=== PATIENT | male | born 1995 | race Caucasian/White ===

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

== ENCOUNTER 2017-12-22 02:00 | Emergency (ER) | payer OTHER, BC ==
[2017-12-22 02:24] VITALS: BP 132/85; PULSE 75; TEMP 98.1; BMI 24.3
--- NOTE | 2017-12-22 02:28 | PDOC ---
History of Present Illness - General Stated Complaint: L HAND LAC Time Seen by Provider: 12/22/17 02:18 History Source: Patient Exam Limitations: No Limitations - History of Present Illness Initial Comments: 12/22/17 02:19 Best Contact: PCP: Dr. Burgess Pmhx:0 Pshx:0 Allergies:0 FH:0 Social Hx: Cigarettes/ 0Alcohol/ 0 Drugs/0 LMP:N/A 22-year-old who is right hand dominant presents to the ER complaining of laceration to the left palm. 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 Patient denies extremity numbness or tingling sensation. Patient states incident occurred 2-1/ 2 hours ago. He applied a Band-Aid and continue working for the past 2 hours. Patient states bleeding was controlled with direct pressure prior to his arrival. Unknown last tetanus. Past History - Past Medical History Allergies/Adverse Reactions: Allergies Allergy/AdvReac Type Severity Reaction Status Date / Time No Known Drug Allergies Allergy Verified 12/22/17 02:21 environmental Allergy Uncoded 12/22/17 02:21 Home Medications: Ambulatory Orders Albuterol Sulfate Inhaler - [Ventolin HFA Inhaler -] 1 - 2 inh PO QID PRN Asthma: Yes - Immunization History Td Vaccination: Yes TDAP Vaccination: Yes Immunization Up to Date: Yes - Suicide/Smoking/Psychosocial Hx Smoking Status: No Smoking History: Never smoked Have you smoked in the past 12 months: No Number of Cigarettes Smoked Daily: 0 Hx Alcohol Use: No Drug/Substance Use Hx: No Substance Use Type: Alcohol Review of Systems - Review of Systems Able to Perform ROS?: Yes Comments:: 12/22/17 03:10 CONSTITUTIONAL: Absent: fever, chills, diaphoresis, generalized weakness, malaise, loss of appetite HEENT: Absent: rhinorrhea, nasal congestion, throat pain, throat swelling, difficulty swallowing, mouth swelling, ear pain, eye pain, visual Changes CARDIOVASCULAR: Absent: chest pain, loss of consciousness, palpitations, irregular heart rate, peripheral edema RESPIRATORY: Absent: cough, shortness of breath, dyspnea with exertion, orthopnea, wheezing, stridor, hemoptysis GASTROINTESTINAL: Absent: abdominal pain, abdominal distension, nausea, vomiting, diarrhea, constipation, melena, hematochezia GENITOURINARY: Absent: dysuria, frequency, urgency, hesitancy, hematuria, flank pain, genital pain MUSCULOSKELETAL: Absent: myalgia, arthralgia, joint swelling SKIN: Absent: rash, itching, pallor HEMATOLOGIC/IMMUNOLOGIC: Absent: easy bleeding, easy bruising, lymphadenopathy, frequent infections ENDOCRINE: Absent: unexplained weight gain, unexplained weight loss, heat intolerance, cold intolerance NEUROLOGIC: Absent: , focal weakness or paresthesias Is the patient limited [place]ic proficient: No *Physical Exam - Physical Exam Comments: 12/22/17 03:10 GENERAL: Well developed, well nourished. Awake and alert. No acute distress. MUSCULOSKELETAL Normal range of motion at all joints. No bony deformities or tenderness. No CVA tenderness. EXTREMITIES: Left hand: lac to lat prox thenar neg numbness/tingling on 2 point discrimination/paperclip F.R>O.M., against resistance on flexion and extension cap refill <2sec No cyanosis. No clubbing. No edema. No calf tenderness. SKIN: Warm and dry. Normal capillary refill. No rashes. No jaundice. NEUROLOGICAL: Alert, awake, appropriate. No deficits to light touch and temperature in face, upper extremities and lower extremities. 12/22/17 03:11 *DC/Admit/Observation/Transfer Diagnosis at time of Disposition: Laceration of left hand Qualifiers: Encounter type: initial encounter Foreign body presence: without foreign body Qualified Code(s): S61.412A - Laceration without foreign body of left hand, initial encounter - Discharge Dispostion Disposition: HOME Condition at time of disposition: Stable Decision to Admit order: No - Referrals Referrals: Jeanette Spencer MD [Primary Care Provider] - - Patient Instructions Printed Discharge Instructions: DI for Laceration Repair Additional Instructions: Keep the incision clean and dry for 24 hours. After 24 hours, you may allow the soap and water to rinse off your incision. Avoid direct pressure of the water to the incision. Pat the incision dry with a clean clothe. Apply a small amount of bacitracin onto the incision. Cover the incision loosely with a bandaid. Take tylenol/motrin as needed for pain. Follow up with your physician or the ER in 48 hours for a wound check. Return to the ER if you notice red streaks, increase redness/swelling/severe pain to the incision. Suture removal in 10-11 days. - Post Discharge Activity Forms/Work/School Notes: Back to Work
[2017-12-22] MEDS ORDERED: DIPHTH,PERTUSS(ACELL),TET 0.5 ML DISP.SYRIN IM ONE (03:08)
--- NOTE | 2017-12-22 03:26 | PDOC ---
*Physical Exam - Vital Signs Last Vital Signs Temp Pulse Resp BP Pulse Ox 98.1 F 75 18 132/85 99 12/22/17 02:21 12/22/17 02:21 12/22/17 02:21 12/22/17 02:21 12/22/17 02:21 ED Treatment Course - Medications Given in the ED: ED Medications Discontinued Medications Generic Name Dose Route Start Last Admin Trade Name Freq PRN Reason Stop Dose Admin Diphtheria/Tetanus/Acell Pertussis 0.5 ml 12/22/17 03:08 12/22/17 03:14 Boostrix - IM 12/22/17 03:09 0.5 ml .ONCE ONE Administration Medical Decision Making - Medical Decision Making 12/22/17 03:26 Case discussed with GARTH Etienne. Plan as per GARTH Etienne *DC/Admit/Observation/Transfer Diagnosis at time of Disposition: Laceration of left hand Qualifiers: Encounter type: initial encounter Foreign body presence: without foreign body Qualified Code(s): S61.412A - Laceration without foreign body of left hand, initial encounter - Discharge Dispostion Disposition: HOME Condition at time of disposition: Stable - Referrals Referrals: Jeanette Spencer MD [Primary Care Provider] - - Patient Instructions Printed Discharge Instructions: DI for Laceration Repair Additional Instructions: Keep the incision clean and dry for 24 hours. After 24 hours, you may allow the soap and water to rinse off your incision. Avoid direct pressure of the water to the incision. Pat the incision dry with a clean clothe. Apply a small amount of bacitracin onto the incision. Cover the incision loosely with a bandaid. Take tylenol/motrin as needed for pain. Follow up with your physician or the ER in 48 hours for a wound check. Return to the ER if you notice red streaks, increase redness/swelling/severe pain to the incision. Suture removal in 10-11 days. - Post Discharge Activity Forms/Work/School Notes: Back to Work
== END 2017-12-22 03:15 | disposition home or self-care (01) ==
LOC: JER 02:00
PROC: 3E0234Z Introduction of Serum, Toxoid and Vaccine into Muscle, Percutaneous Approach (ICD-10-PCS; principal; 2017-12-22)
DX: S61.412A Laceration without foreign body of left hand, initial encounter (principal); W25.XXXA Contact with sharp glass, initial encounter; Y93.89 Activity, other specified; Y92.511 Restaurant or cafe as the place of occurrence of the external cause; Y99.0 Civilian activity done for income or pay
CPT/HCPCS: 90715; 99281-25

== ENCOUNTER 2018-01-05 17:33 | Emergency (ER) | payer OTHER, BC ==
[2018-01-05 17:38] VITALS: BP 129/71; PULSE 81; TEMP 98.4; BMI 27.6
--- NOTE | 2018-01-05 18:28 | PDOC ---
Suture Removal/Wound Check HPI - History of Present Illness Chief Complaint: Suture/Staple Removal(Here) Stated Complaint: Suture/Staple Removal(Here) Time Seen by Provider: 01/05/18 17:51 History Source: Yes: Patient Exam Limitations: Yes: No Limitations Treated at: [facility] ED - Previous ED Treatment Type of procedure performed on last visit: Yes: Laceration Repair Tetanus Immunization: Yes: Up to Date Past History - Travel Traveled outside of the country in the last 30 days: No Close contact w/someone who was outside of country & ill: No - Past Medical History Allergies/Adverse Reactions: Allergies Allergy/AdvReac Type Severity Reaction Status Date / Time No Known Drug Allergies Allergy Verified 01/05/18 17:38 environmental Allergy Uncoded 01/05/18 17:38 Home Medications: Ambulatory Orders Albuterol Sulfate Inhaler - [Ventolin HFA Inhaler -] 1 - 2 inh PO QID PRN Asthma: Yes COPD: No - Immunization History Td Vaccination: Yes TDAP Vaccination: Yes Immunization Up to Date: Yes - Suicide/Smoking/Psychosocial Hx Smoking Status: No Smoking History: Never smoked Have you smoked in the past 12 months: No Number of Cigarettes Smoked Daily: 0 Hx Alcohol Use: No Drug/Substance Use Hx: No Substance Use Type: Alcohol Suture Removal/Wound Check PE - Physical Exam Laceration/Wound Check Symptoms: reports: None Current Severity Level: None Maximum Severity Level: None Pain Localization: None *Review of Systems - Review of Systems Able to Perform ROS?: Yes Constitutional: Yes: See HPI. No: Symptoms Reported HEENTM: No: Symptoms Reported Respiratory: Yes: Symptoms reported ABD/GI: Yes: Symptoms Reported Musculoskeletal: Yes: Symptoms Reported, See HPI Integumentary: Yes: Symptoms Reported Neurological: No: Symptoms reported All Other Systems: Reviewed and Negative *Physical Exam - Vital Signs Last Vital Signs Temp Pulse Resp BP Pulse Ox 98.4 F 81 18 129/71 99 01/05/18 17:36 01/05/18 17:36 01/05/18 17:36 01/05/18 17:36 01/05/18 17:36 - Physical Exam General Appearance: Yes: Nourished, Appropriately Dressed HEENT: positive: FLORENCIO, Normal ENT Inspection, TMs Normal, Pharynx Normal Neck: positive: Supple. 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 NML intact, Fully Oriented, Alert, Normal Mood/ Affect, Normal Response, Motor Strength 5/5 *DC/Admit/Observation/Transfer Diagnosis at time of Disposition: Suture Removal from skin - Discharge Dispostion Disposition: HOME Condition at time of disposition: Stable Decision to Admit order: No - Referrals Referrals: Jeanette Spencer MD [Primary Care Provider] - - Patient Instructions Printed Discharge Instructions: DI for Suture Removal Additional Instructions: Rest, avoid strenuous activity or exercise until scabbing is completely resolved May use bacitracin ointment until scabbing is gone After may use vitamin E oil, poke hole in vitamin E capsule and use oil from the capsule on wound- may help resolve some of the discoloration of the scar Keep wound out of the sun for at least one year to avoid darkening of scar tissue - Post Discharge Activity Forms/Work/School Notes: Back to Work
== END 2018-01-05 18:04 | disposition home or self-care (01) ==
LOC: JERFT 17:33
DX: Z48.817 Encounter for surgical aftercare following surgery on the skin and subcutaneous tissue (principal); Z48.02 Encounter for removal of sutures
CPT/HCPCS: 99281-25

== ENCOUNTER 2018-02-21 15:32 | Emergency (ER) | payer BC ==
[2018-02-21 16:03] VITALS: BP 115/75; PULSE 66; TEMP 98.7; BMI 26.4
--- NOTE | 2018-02-21 16:22 | PDOC ---
History of Present Illness - General Chief Complaint: Bleeding from Anus Stated Complaint: BLEEDING, RECAL Time Seen by Provider: 02/21/18 16:10 History Source: Patient Exam Limitations: No Limitations - History of Present Illness Travel History: No Initial Comments: 02/21/18 16:17 c/o rectal burning and bleeding after pushing during a bowel movement. no diarrhea no abd pain .Denies any anal intercourse, or foreign body exposure. 02/21/18 16:21 Past History - Past Medical History Allergies/Adverse Reactions: Allergies Allergy/AdvReac Type Severity Reaction Status Date / Time No Known Drug Allergies Allergy Verified 02/21/18 15:59 environmental Allergy Uncoded 02/21/18 15:59 Home Medications: Ambulatory Orders Albuterol Sulfate Inhaler - [Ventolin HFA Inhaler -] 1 - 2 inh PO QID PRN Hydrocortisone Acetate [Anusol Hc Suppository -] 25 mg RC BID #28 supp.rect Asthma: Yes COPD: No - Immunization History Td Vaccination: Yes TDAP Vaccination: Yes Immunization Up to Date: Yes - Suicide/Smoking/Psychosocial Hx Smoking Status: No Smoking History: Never smoked Have you smoked in the past 12 months: No Number of Cigarettes Smoked Daily: 5 Information on smoking cessation initiated: No Hx Alcohol Use: Yes (social) Drug/Substance Use Hx: No Substance Use Type: Alcohol Abd/GI Specific PMHX - Complaint Specific PMHX Colitis: No Diverticulitis: No Gall Bladder Disease: No GERD: No Hepatitis: No Irritable Bowel Synd (IBS): No Pancreatitis: No GI Ulcer Disease: No Review of Systems - Review of Systems Able to Perform ROS?: Yes Is the patient limited [place] proficient: No ABD/GI: Yes: Symptoms Reported *Physical Exam - Vital Signs Last Vital Signs Temp Pulse Resp BP Pulse Ox 98.7 F 66 18 115/75 98 02/21/18 16:00 02/21/18 16:00 02/21/18 16:00 02/21/18 16:00 02/21/18 16:00 - Physical Exam General Appearance: Yes: Nourished, Appropriately Dressed HEENT: positive: EOMI, FLORENCIO Gastrointestinal/Abdominal: positive: Normal Bowel Sounds, Soft. negative: Tender Rectal Exam: positive: normal rectal tone, hemorrhoids (internal hemorhoid non thrombosed) Musculoskeletal: positive: Normal Inspection Extremity: positive: Normal Capillary Refill, Normal Inspection, Normal Range of Motion Medical Decision Making - Medical Decision Making 02/21/18 16:18 cc: rectal burning and BRBPR after having large BM with pushing no bleeding now exam with no external hemorrhoids, internal palpated will treat with Annusol supository *DC/Admit/Observation/Transfer Diagnosis at time of Disposition: Hemorrhoid Qualifiers: Hemorrhoid type: first degree Qualified Code(s): K64.0 - First degree hemorrhoids - Discharge Dispostion Disposition: HOME Condition at time of disposition: Good - Prescriptions Prescriptions: Hydrocortisone Acetate [Anusol Hc Suppository -] 25 mg RC BID #28 supp.rect - Referrals Referrals: Duong Spencer MD [Primary Care Provider] - Mary Grace Mitchell MD [Staff Physician] - - Patient Instructions Additional Instructions: drink at least 2 liters of water a day high fiber diet vegetables and fruits avoid fatty foods use the suppository as directed follow with the top and seat cover fitter for follow up return if worse - Post Discharge Activity
== END 2018-02-21 16:50 | disposition home or self-care (01) ==
LOC: JERFT 15:32
DX: K64.0 First degree hemorrhoids (principal)
CPT/HCPCS: 99281-25

== ENCOUNTER 2018-11-01 00:13 | Emergency (ER) | payer BC, OTHER ==
[2018-11-01 00:24] VITALS: BP 133/88; PULSE 83; TEMP 97.7; BMI 24.3
[2018-11-01 01:32] LABS: BASO % 0.4 % (0-2.0); EOS % 2.8 % (0-4.5); HEMATOCRIT 45.4 % (35.4-49); HEMOGLOBIN 15.1 GM/dL (11.7-16.9); MCH 30.4 pg (25.7-33.7); MCHC 33.3 g/dl (32.0-35.9); MEAN CELL VOLUME 91.3 fl (80-96); MEAN PLT VOLUME 8.4 fl (7.5-11.1); MONO % 9.8 % (3.8-10.2); PLATELET COUNT 200 K/MM3 (134-434); RBC 4.97 M/mm3 (4.00-5.60); RDW 13.9 % (11.9-15.9); WHITE BLOOD COUNT 8.1 K/mm3 (4.0-10.0)
--- NOTE | 2018-11-01 02:02 | PDOC ---
History of Present Illness - General Chief Complaint: Chest Pain Stated Complaint: CHEST PAIN Time Seen by Provider: 11/01/18 00:43 History Source: Patient Exam Limitations: No Limitations - History of Present Illness Initial Comments: 11/01/18 02:42 HISTORY OF PRESENT ILLNESS: 23-year-old male with past medical history of unknown cardiac problem (mother states the child was evaluated by the licensed prosthetist/orthotist at 10 years old for questionable problem was told no follow-up was necessary) who presents emergency department for evaluation of atraumatic left shoulder pain today while at a picnic sitting down eating. Reports he felt a sharp pain in the anterior shoulder which caused him to have mild weakness of his left hand when the pain was present. Tried to turn to normal when pain subsided. Patient did not take any for the pain and had spontaneous resolution. No recent travel or sick contacts. PAST MEDICAL HISTORY: Denies past medical history SURGICAL HISTORY: Denies ALLERGIES: No known drug allergies REVIEW OF SYSTEMS General/Constitutional: Denies fever or chills. Denies weakness, weight change. HEENT: Denies change in vision. Denies ear pain or discharge. Denies sore throat. Cardiovascular: Denies chest pain or shortness of breath. Respiratory: Denies cough, wheezing, or hemoptysis. Gastrointestinal: Denies nausea, vomiting, diarrhea or constipation. Denies rectal bleeding. Genitourinary: Denies dysuria, frequency, or change in urination. Musculoskeletal: Denies joint or muscle swelling or pain. Denies neck or back pain. Skin and breasts: Denies rash or easy bruising. Neurologic: Denies headache, vertigo, loss of consciousness, or loss of sensation. Psychiatric: Denies depression or anxiety. Endocrine: Denies increased thirst. Denies abnormal weight change. Hematologic/Lymphatic: Denies anemia, easy bleeding, or history of blood clots. Allergic/Immunologic: Denies hives or skin allergy. Denies latex allergy. PHYSICAL EXAM General Appearance: Well-appearing, appropriately dressed. No apparent distress , no intoxication. Respiratory/Chest: Lungs CTAB. No shortness of breath, chest tenderness, respiratory distress, accessory muscle use. No crackles, rales, rhonchi, stridor , wheezing, dullness Cardiovascular: RRR. S1, S2. No JVD, murmur, bradycardia, tachycardia. Vascular Pulses: Dorsalis-Pedis (R): 2+, Dorsalis-Pedis (L): 2+ Gastrointestinal/Abdominal: Normal bowel sounds. Abdomen soft, non-distended. No tenderness or rebound tenderness. No organomegaly, pulsatile mass, guarding, hernia, hepatomegaly, splenomegaly. Musculoskeletal/Extremities: Normal inspection. Full active range of motion of left shoulder. Tender to palpation over the anterior capsule of the left shoulder. Increased pain with downward traction is pressed on extended shoulder. No deformity, crepitus or step-off present upon palpation of humerus, clavicle or ribs. Neurovascular intact. Integumentary: Appropriate color, dry, warm. No cyanosis, erythema, jaundice or rash Neurologic: news broadcaster II-XII intact. Fully oriented, alert. Appropriate mood/affect. Motor strength 5/5. No appreciable EOM palsy, facial droop or sensory deficit. 11/01/18 02:56 Past History - Past Medical History Allergies/Adverse Reactions: Allergies Allergy/AdvReac Type Severity Reaction Status Date / Time No Known Drug Allergies Allergy Verified 11/01/18 00:22 environmental Allergy Uncoded 11/01/18 00:22 Home Medications: Ambulatory Orders Hydrocortisone Acetate [Anusol Hc Suppository -] 25 mg RC BID #28 supp.rect Methylprednisolone [Medrol Dose Yong] 4 mg PO ASDIR #21 tablet 11/01/18 Asthma: Yes COPD: No - Immunization History Td Vaccination: Yes TDAP Vaccination: Yes Immunization Up to Date: Yes - Suicide/Smoking/Psychosocial Hx Smoking Status: No Smoking History: Never smoked Have you smoked in the past 12 months: No Number of Cigarettes Smoked Daily: 5 Information on smoking cessation initiated: No Hx Alcohol Use: No Drug/Substance Use Hx: No Substance Use Type: Alcohol *Physical Exam - Vital Signs Last Vital Signs Temp Pulse Resp BP Pulse Ox 97.7 F 83 18 133/88 99 11/01/18 00:22 11/01/18 00:22 11/01/18 00:22 11/01/18 00:22 11/01/18 00:22 Heart Score/ECG Review - History History: Slightly suspicious - Electrocardiogram EKG: Normal - Age Age: </= 45 - Risk Factors Risk Factors Heart Score: Yes Positive family hx of cardiac disease Based on the list above the patient has:: 1-2 risk factors - Troponin Troponin: </= normal limit - Score Heart Score - Total: 1 ED Treatment Course - LABORATORY CBC & Chemistry Diagram: 11/01/18 01:20 11/01/18 01:20 - ADDITIONAL ORDERS Additional order review: 11/01/18 01:20 RBC 4.97 MCV 91.3 MCHC 33.3 RDW 13.9 MPV 8.4 Neutrophils % 61.0 Lymphocytes % 26.0 Monocytes % 9.8 Eosinophils % 2.8 Basophils % 0.4 - RADIOLOGY Radiology Studies Ordered: Category Date Time Status CHEST PA & LAT [RAD] Stat Radiology 11/01/18 01:04 Taken Medical Decision Making - Medical Decision Making 11/01/18 02:41 A/P: 23-year-old male with atraumatic left anterior shoulder pain Pain is radicular in nature. As patient has previous unknown cardiac history I will do an EKG, chest x-ray and one set of cardiac enzymes to rule out cardiac etiology of pain. Laboratory testing is unremarkable with an initial troponin is less than 0.02. EKG sinus rhythm with sinus arrhythmia the rate of 61. Normal intervals present. No ischemic changes noted. Chest x-ray as read by me: Angles sharp. Lung harris clear without infiltrates or consolidation. Cardiac silhouette is within normal limits. I'll discharge the patient home with a prescription for Medrol Dosepak instructions to follow-up with his primary doctor. *DC/Admit/Observation/Transfer Diagnosis at time of Disposition: Left anterior shoulder pain - Discharge Dispostion Disposition: HOME Condition at time of disposition: Fair Decision to Admit order: No - Prescriptions Prescriptions: Methylprednisolone [Medrol Dose Yong] 4 mg PO ASDIR #21 tablet - Referrals Referrals: Jeanette Spencer MD [Primary Care Provider] - - Patient Instructions Additional Instructions: Rest your shoulder. Your emergency department visit is incomplete and spleen follow-up with your regular doctor. Take Medrol Dosepak as prescribed. Return to emergency department for any new or worsening symptoms. Thank you very much for choosing us to provide your emergent health care needs. - Post Discharge Activity
[2018-11-01 02:03] LABS: ALBUMIN 4.3 g/dl (3.4-5.0); ALK PHOS 47 U/L (45-117); ANION GAP 5 MMOL/L (8-16); BILIRUBIN,TOTAL 0.5 mg/dL (0.2-1); BLOOD UREA NITROGEN 9.3 mg/dL (7-18); CALCIUM 9.1 mg/dL (8.5-10.1); CHLORIDE 106 mmol/L (98-107); CO2 31 mmol/L (21-32); CREATININE 1.1 mg/dL (0.55-1.3); GLUCOSE,RANDOM 77 mg/dL (74-106); MAGNESIUM 2.5 mg/dL (1.8-2.4); POTASSIUM 4.6 mmol/L (3.5-5.1); SGOT/AST 22 U/L (15-37); SGPT/ALT 21 U/L (13-61); SODIUM 142 mmol/L (136-145); TOT PROT 7.3 g/dl (6.4-8.2)
[2018-11-01 02:25] LABS: INR 0.9 (0.83-1.09); PROTHROMBIN TIME (PATIENT) 10.6 SEC (9.7-13.0)
--- NOTE | 2018-11-03 00:29 | EKG ---
Test Reason : Blood Pressure : / mmHG Vent. Rate : 061 BPM Atrial Rate : 061 BPM P-R Int : 122 ms QRS Dur : 084 ms QT Int : 390 ms P-R-T Axes : 074 092 081 degrees QTc Int : 392 ms NORMAL SINUS RHYTHM WITH SINUS ARRHYTHMIA RIGHTWARD AXIS BORDERLINE ECG NO PREVIOUS ECGS AVAILABLE Confirmed by MD Jeffery, Tevin ([id number]) on 11/03/2018 12:29:21 AM Referred By: Confirmed By:Tevin Gil MD
== END 2018-11-01 02:45 | disposition home or self-care (01) ==
LOC: JER 00:13
DX: M25.512 Pain in left shoulder (principal)
CPT/HCPCS: 36415; 71046-TC-FY; 80053; 82550; 82553; 83735; 84484; 85025; 85610; 93005; 93010; 99281-25

== ENCOUNTER 2023-07-02 00:20 | Emergency (ER) | payer OTHER ==
[2023-07-02 00:27] VITALS: BP 127/89; PULSE 82; RESP 16; TEMP 98.4; BMI 25.8
[2023-07-02] MEDS ORDERED: PIPERACILLIN/TAZOBACTAM 3.375 GM VIAL IVPB ONE (00:41)
[2023-07-02] MEDS: PIPERACILLIN/TAZOB 3.375 GM 3.375 GM in DEXTROSE 5%-WATER - 50 ML IVPB ONE (00:51)
[2023-07-02] MEDS ORDERED: KETOROLAC TROMETHAMINE 30 MG/1 ML VIAL ONE (00:51)
[2023-07-02] MEDS: KETOROLAC TROMETHAMINE 30 MG/1 ML VIAL IVPUSH ONE (01:22)
== END 2023-07-02 01:30 | disposition home or self-care (01) ==
LOC: FER 00:20
PROC: 3E03329 Introduction of Other Anti-infective into Peripheral Vein, Percutaneous Approach (ICD-10-PCS; principal; 2023-07-02)
PROC: 3E0333Z Introduction of Anti-inflammatory into Peripheral Vein, Percutaneous Approach (ICD-10-PCS; 2023-07-02)
DX: S61.250A Open bite of right index finger without damage to nail, initial encounter (principal); W55.01XA Bitten by cat, initial encounter
CPT/HCPCS: 96365; 96375; 99284-25

== ENCOUNTER 2023-10-15 13:28 | Emergency (ER) | payer OTHER ==
[2023-10-15 13:40] VITALS: BP 109/73; PULSE 66; RESP 20; TEMP 98.3; BMI 25.8
[2023-10-15] MEDS: DEXAMETHASONE 4 MG TABLET (FP) PO ONE (14:20)
[2023-10-15] MEDS ORDERED: DEXAMETHASONE SOD PHOSPHATE 10 MG/1 ML VIAL ONE (14:21)
== END 2023-10-15 14:25 | disposition home or self-care (01) ==
LOC: FER 13:28
DX: J02.9 Acute pharyngitis, unspecified (principal)
CPT/HCPCS: 99283-25

== ENCOUNTER 2024-08-05 13:34 | Emergency (ER) | payer OTHER ==
[2024-08-05 13:43] VITALS: BP 142/92; PULSE 84; RESP 18; TEMP 98.4; BMI 24.3
[2024-08-05] MEDS ORDERED: ACETAMINOPHEN INJECTION 100 ML ONE (14:49)
[2024-08-05] MEDS ORDERED: ONDANSETRON 4 MG/2 ML VIAL ONE (14:50)
[2024-08-05] MEDS: ONDANSETRON 4 MG/2 ML VIAL IVPUSH ONE (14:56)
[2024-08-05] MEDS: ACETAMINOPHEN 1000 MG/100 ML BAG IVPB ONE (14:56)
[2024-08-05] MEDS: SODIUM CHLORIDE 1,000 ML IV STA (14:56)
[2024-08-05 15:10] LABS: ABSOLUTE IMMATURE GRANULOCYTES 0.07 x10^3/uL (0.0-0.031); BASOPHILS # 0.02 x10^3/uL (0.01-0.08); HEMATOCRIT 40.4 % (40.1-51.0); HEMOGLOBIN 13.4 g/dL (13.7-17.5); MCHC 33.2 g/dl (32.3-36.5); MEAN PLT VOLUME 10.2 fl (9.4-12.4); MONOCYTE # 0.99 x10^3/uL (0.30-0.82); MONOCYTE % 7.3 % (5.3-12.2); PLATELET COUNT 172 x10^3/uL (163-337); RDW 12.5 % (11.9-15.3)
[2024-08-05 15:12] LABS: EPI CELLS 2 /uL (0-25.1); HYALINE CASTS 1 /uL (0-3.1); URINE APPEARANCE CLOUDY; URINE BACTERIA 8478 /uL (0-1359); URINE BILIRUBIN NEGATIVE (NEGATIVE); URINE COLOR YELLOW; URINE GLUCOSE (UA) NEGATIVE (NEGATIVE); URINE KETONE 1+ (NEGATIVE); URINE LEUK ESTERASE 3+ (NEGATIVE); URINE NITRITE NEGATIVE (NEGATIVE); URINE PROTEIN 3+ (NEGATIVE); URINE RBC 1631 /uL (0-23.9); URINE WBC 3839 /uL (0-25.8)
[2024-08-05 15:27] LABS: POTASSIUM 4.3 mmol/L (3.5-5.1)
[2024-08-05 15:29] LABS: ALBUMIN 3.7 g/dl (3.4-5.0); CALCIUM 8.8 mg/dL (8.5-10.1)
[2024-08-05 15:30] LABS: BLOOD UREA NITROGEN 7.7 mg/dL (7-18)
[2024-08-05 15:34] LABS: TOT PROT 7.1 g/dl (6.4-8.2)
[2024-08-05 16:26] LABS: HIV INTERPRETATION NEGATIVE (NEGATIVE)
[2024-08-05 16:27] LABS: HCV DIAGNOSTIC IN-HOUSE W/RFLX NON-REACTIVE (NONREACTIVE)
[2024-08-05] MEDS ORDERED: morphine SULFATE 4 MG/ML VIAL ONE (17:54)
[2024-08-05] MEDS: morphine CARPU-JECT 4 MG/1 ML DISP.SYRIN IVPUSH ONE (18:07)
[2024-08-05] MEDS ORDERED: CEFTRIAXONE 1 G/50 ML PREMIX 50 ML IVPB ONE (18:27)
[2024-08-05] MEDS: CEFTRIAXONE 1,000 MG in DEXTROSE 5%-WATER - 50 ML IVPB ONE (18:34)
== END 2024-08-05 19:11 | disposition home or self-care (01) ==
LOC: JER 13:34
PROC: 3E03329 Introduction of Other Anti-infective into Peripheral Vein, Percutaneous Approach (ICD-10-PCS; principal; 2024-08-05)
PROC: 3E033NZ Introduction of Analgesics, Hypnotics, Sedatives into Peripheral Vein, Percutaneous Approach (ICD-10-PCS; 2024-08-05)
PROC: 3E033NZ Introduction of Analgesics, Hypnotics, Sedatives into Peripheral Vein, Percutaneous Approach (ICD-10-PCS; 2024-08-05)
PROC: 3E0337Z Introduction of Electrolytic and Water Balance Substance into Peripheral Vein, Percutaneous Approach (ICD-10-PCS; 2024-08-05)
DX: N39.0 Urinary tract infection, site not specified (principal); R10.31 Right lower quadrant pain; R39.11 Hesitancy of micturition
CPT/HCPCS: 36415; 74177-TC; 80053; 81003; 85025; 86803; 87086; 87186; 87389; 87491; 87591; 99285-25; J0131; Q9967